=== PATIENT | male | born 1960 | race American Indian/Alaskan Native ===

== ENCOUNTER 2021-08-30 15:39 | Emergency (ER) | payer MEDICAID ==
[2021-08-30] MEDS ORDERED: THIAMINE 100 MG, FOLIC ACID 1 MG, MULTIPLE VITAMIN INJ, ADULT 10 ML in SODIUM CHLORIDE ... IV ONE (16:12)
[2021-08-30] MEDS ORDERED: chlordiazePOXIDE 25 MG CAP PO PRN (16:13)
[2021-08-30] MEDS ORDERED: chlordiazePOXIDE 25 MG CAP PO ONE ×2 (16:18→19:00)
--- NOTE | 2021-08-30 16:18 | Emergency Department Report ---
ED Fall HPI - General Chief Complaint: Fall Stated Complaint: FALL Time Seen by Provider: 08/30/21 16:03 Source: patient, EMS Mode of arrival: Wheelchair Limitations: No Limitations - History of Present Illness Initial Comments: Chief complaint: "I have had multiple falls. I have been drinking excessively." HPI: This is a 61-year-old male with history of bilateral lower extremity amputation as well as left hand amputation of 4 fingers who presents with multiple falls. He is wheelchair-bound with history of right BKA and left AKA. He states that he has been drinking alcohol "excessively". His last drink was yesterday. No history of DTs. He has had multiple falls. His [employer] called EMS for medical evaluation. He has diffuse body pain. He denies head injury or neck pain. He denies discrete pain. He has multiple bruises of the torso. MD Complaint: fall -: days(s) (Several falls over the last week) Fall From: wheelchair When Fall Occurred: unsure Fall Witnessed: no Place Fall Occurred: home Loss of Consciousness: none Prolonged Down Time?: no Symptoms Prior to Fall: none Location: chest, back Severity: moderate Context: tripped/slipped, alcohol use Associated Symptoms: denies - Related Data Allergies Allergy/AdvReac Type Severity Reaction Status Date / Time No Known Allergies Allergy Verified 08/30/21 16:22 ED Review of Systems ROS: Stated complaint: FALL Other details as noted in HPI Comment: All other systems reviewed and negative Constitutional: denies: chills, fever, malaise Respiratory: denies: cough, shortness of breath Cardiovascular: denies: chest pain Gastrointestinal: denies: abdominal pain, nausea, vomiting, diarrhea, constipation Skin: lesions (Multiple bruises) ED Past Medical Hx - Past Medical History Previous Medical History?: Yes Hx Hypertension: Yes Hx COPD: Yes - Surgical History Past Surgical History?: Yes Additional Surgical History: multiple amputations - Family History Family history: hypertension - Social History Smoking Status: Current Every Day Smoker Substance Use Type: Alcohol ED Physical Exam - General Limitations: Physical Limitation General appearance: alert, in no apparent distress, appears intoxicated, other (GCS 15 appears dazed at times slow to respond to questions) - Head Head exam: Present: atraumatic, normocephalic - Eye Eye exam: Present: normal appearance - ENT ENT exam: Present: mucous membranes moist - Neck Neck exam: Present: normal inspection, full ROM. Absent: tenderness, meningismus - Respiratory Respiratory exam: Present: normal lung sounds bilaterally. Absent: respiratory distress, wheezes, rales, rhonchi - Cardiovascular Cardiovascular Exam: Present: normal rhythm, tachycardia, normal heart sounds. Absent: systolic murmur, diastolic murmur, rubs, gallop - GI/Abdominal GI/Abdominal exam: Present: soft, normal bowel sounds. Absent: distended, tenderness, guarding, rebound - Rectal Rectal exam: Present: deferred - Extremities Exam Extremities exam: Present: other (Right BKA, left AKA, 4 digits amputated just distal to the MCP of the left hand) - Back Exam Back exam: Present: other (Multiple bruises). Absent: CVA tenderness (R), CVA tenderness (L), paraspinal tenderness, vertebral tenderness - Neurological Exam Neurological exam: Present: alert, oriented X3 - Psychiatric Psychiatric exam: Present: depressed, flat affect. Absent: suicidal ideation - Skin Skin exam: Present: warm, dry, intact, normal color. Absent: rash ED Course Vital Signs 08/30/21 08/30/21 08/30/21 15:47 16:49 16:51 Temperature 97.9 F 98.2 F Pulse Rate 104 H 99 H 111 H Respiratory 16 18 Rate Blood Pressure Blood Pressure 120/88 103/73 [Left] O2 Sat by Pulse 95 95 Oximetry 08/30/21 08/30/21 08/30/21 17:01 17:04 17:15 Temperature Pulse Rate 114 H 122 H 113 H Respiratory 18 20 Rate Blood Pressure 119/81 123/89 Blood Pressure [Left] O2 Sat by Pulse 94 96 Oximetry 08/30/21 08/30/21 08/30/21 17:31 18:15 18:31 Temperature Pulse Rate 99 H 121 H Respiratory 18 19 Rate Blood Pressure 129/84 126/92 126/92 Blood Pressure [Left] O2 Sat by Pulse 94 97 93 Oximetry 08/30/21 08/30/21 08/30/21 18:45 19:01 19:15 Temperature Pulse Rate 121 H 117 H 115 H Respiratory 38 H 29 H 19 Rate Blood Pressure 119/88 129/84 123/82 Blood Pressure [Left] O2 Sat by Pulse 94 94 97 Oximetry 08/30/21 08/30/2108/30/22 19:28 19:29 19:59 Temperature 97.8 F Pulse Rate 117 H 114 H Respiratory 20 Rate Blood Pressure Blood Pressure 138/70 [Left] O2 Sat by Pulse 99 98 Oximetry ED Medical Decision Making - Lab Data Result diagrams: 08/30/21 16:33 08/30/21 16:33 - EKG Data -: EKG Interpreted by Me EKG shows normal: sinus rhythm Rate: tachycardia - EKG Data Interpretation: nonspecific ST-T wave felipe 08/30/21 17:10 EKG obtained 1657 EKG interpreted by me Sinus tachycardia rate 115 bpm normal axis normal intervals enlarged P waves nonspecific T wave pattern no ST elevation - Radiology Data Radiology results: report reviewed Patient Name: ALDA RICO Gender: Male Date of : 1960 Referring Provider: REN MONTES Organization: [facility] Accession Number: [id number] Requested Date: August 30, 2021 16:28 Report Status: Final Requested Procedure: 1 Procedure Description: CT head/brain wo con Modality: CT Findings Reporting MD: Hasmukh Saunders Dictation Time: August 30, 2021 17:11 Brake Drum Molder: Not available 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 COMPARISON: None available. FINDINGS: BRAIN/INTRACRANIAL STRUCTURES: Unenhanced CT images of the brain demonstrate no evidence of acute abnormality. Ventricles and sulci are prominent in size, consistent with diffuse cerebral atrophy. There is no evidence of acute large vessel territory ischemic injury, hemorrhage, or mass. There are no abnormal extra-axial fluid collections. EXTRACRANIAL STRUCTURES: Unremarkable. IMPRESSION: No acute abnormality. All CT scans at this location are performed using dose reduction to ALARA by means of automated exposure control. Signer Name: Hasmukh Saunders MD Signed: 08/30/2021 5:11 PM Workstation Name: [id number] Patient Name: ALDA RICO Gender: Male Date of : 1960 Referring Provider: REN MONTES Organization: [facility] Accession Number: [id number] Requested Date: August 30, 2021 16:28 Report Status: Final Requested Procedure: 1 Procedure Description: CT cervical spine wo con Modality: CT Findings Reporting MD: Hasmukh Saunders Dictation Time: August 30, 2021 17:13 Brake Drum Molder: Not available Airplane Dispatch Clerk Date: CT CERVICAL SPINE: 08/30/2021 INDICATION / CLINICAL INFORMATION: Trauma. COMPARISON: None available. FINDINGS: CT images of the cervical spine were obtained. Images are evaluated in the axial, coronal, and sagittal planes. There is no evidence of acute traumatic injury. Mild right convex scoliosis centered at the cervicothoracic junction. Reversal of cervical lordosis in the sagittal plane is centered at the C6-7 level. Degenerative disc space narrowing is present at C6-7 and C7-T1. Ventral osteophyte formation is present at all levels, most prominently at C5-6 and C6-7. CRANIOCERVICAL JUNCTION: Unremarkable. PARASPINAL STRUCTURES: Unremarkable IMPRESSION: No acute abnormality. Degenerative changes. All CT scans at this location are performed using dose reduction to ALARA by means of automated exposure control. Signer Name: Hasmukh Saunders MD Signed: 08/30/2021 5:13 PM Workstation Name: [id number] Patient Name: ALDA RICO Gender: Male Date of : 1960 Referring Provider: REN MONTES Organization: [facility] Accession Number: [id number] Requested Date: August 30, 2021 16:29 Report Status: Final Requested Procedure: 1 Procedure Description: CT chest wo con Modality: CT Findings Reporting MD: Loyd Taylor Dictation Time: August 30, 2021 17:19 Brake Drum Molder: Not available Airplane Dispatch Clerk Date: CT chest wo con INDICATION / CLINICAL INFORMATION: Recurrent falls multiple bruises alcohol use. TECHNIQUE: CT chest without contrast All CT scans at this location are performed using CT dose reduction for ALARA by means of automated exposure control. COMPARISON: None available. FINDINGS: Diffuse emphysema. Moderate atherosclerotic calcification of the coronary arteries. No pericardial or pleural effusion. The heart size is normal. Review of bone windows demonstrates mild osteopenia. No discrete fracture identified. IMPRESSION: No acute findings. Severe emphysema. Signer Name: Loyd Taylor MD Signed: 08/30/2021 5:19 PM Workstation Name: [id number] Patient Name: ALDA RICO Gender: Male Date of : 1960 Referring Provider: REN MONTES Organization: [facility] Accession Number: [id number] Requested Date: August 30, 2021 16:29 Report Status: Final Requested Procedure: 1 Procedure Description: CT chest wo con Modality: CT Findings Reporting MD: Loyd Taylor Dictation Time: August 30, 2021 17:19 Brake Drum Molder: Not available Airplane Dispatch Clerk Date: CT chest wo con INDICATION / CLINICAL INFORMATION: Recurrent falls multiple bruises alcohol use. TECHNIQUE: CT chest without contrast All CT scans at this location are performed using CT dose reduction for ALARA by means of automated exposure control. COMPARISON: None available. FINDINGS: Diffuse emphysema. Moderate atherosclerotic calcification of the coronary arteries. No pericardial or pleural effusion. The heart size is normal. Review of bone windows demonstrates mild osteopenia. No discrete fracture identified. IMPRESSION: No acute findings. Severe emphysema. Signer Name: Loyd Taylor MD Signed: 08/30/2021 5:19 PM Workstation Name: [id number] - Medical Decision Making 1. Fall without evidence of neck injury or acute traumatic deformity of the extremities. Patient has multiple bruises of the torso. CT head, CT cervical spine, CT C/A/P obtained due to patient's poor hx. 2. Acute alcohol intoxication. Blood alcohol level 0.34. He appeared intoxicated on exam although he stated that his last drink of alcohol was yesterday. 3. gastritis on ct without acute issues 4. alcoholic liver disease with elevated AST t bili Critical care attestation.: If time is entered above; I have spent that time in minutes in the direct care of this critically ill patient, excluding procedure time. ED Disposition Clinical Impression: Fall, Gastritis, Alcoholic liver disease, Alcohol intoxication Disposition: 01 HOME / SELF CARE / HOMELESS Is pt being admited?: No Does the pt Need Aspirin: No Condition: Stable Instructions: Alcoholic Liver Disease, [id number] Referrals: NELSON RIVERA MD [Primary Care Provider] - 3-5 Days
[2021-08-30 16:52] LABS: Basophils % (Auto) 0.1 % (0.0-1.8); Hematocrit 41.8 % (35.5-45.6); Hemoglobin 13.9 gm/dl (11.8-15.2); Lymphocytes # (Auto) 0.7 K/mm3 (1.2-5.4); Mean Corpuscular HGB Conc 33 % (32-34); Mean Corpuscular Volume 106 fl (84-94); Monocytes # (Auto) 0.5 K/mm3 (0.0-0.8); Monocytes % (Auto) 7.4 % (0.0-7.3); Platelet Count 271 K/mm3 (140-440); Red Blood Count 3.95 M/mm3 (3.65-5.03); Red Cell Distribution Width 16.6 % (13.2-15.2)
[2021-08-30 17:15] LABS: Alanine Aminotransferase 49 units/L (7-56); Albumin 4.9 g/dL (3.9-5); Blood Urea Nitrogen 11 mg/dL (9-20); Calcium 9.6 mg/dL (8.4-10.2); Hemolysis Index 38
[2021-08-30 17:18] LABS: BUN/Creatinine Ratio 22
[2021-08-30] MEDS ORDERED: THIAMINE 100 MG, FOLIC ACID 1 MG in SODIUM CHLORIDE 0.9% 1000 ML 1,000 ML IV ONE (18:00)
--- NOTE | 2021-08-30 18:15 | Cat Scan Report ---
CT BRAIN: 08/30/2021 INDICATION / CLINICAL INFORMATION: Trauma. COMPARISON: None available. FINDINGS: BRAIN/INTRACRANIAL STRUCTURES: Unenhanced CT images of the brain demonstrate no evidence of acute abn ormality. Ventricles and sulci are prominent in size, consistent with diffuse cerebral atrophy. There is no evidence of acute large vessel territory ischemic injury, hemorrhage, or mass. There are no abnormal extra-axial fluid collections. EXTRACRANIAL STRUCTURES: Unremarkable. IMPRESSION: No acute abnormality. All CT scans at this location are performed using dose reduction to ALARA by means of automated expos ure control. Signer Name: Hasmukh Saunders MD Signed: 08/30/2021 6:11 PM Workstation Name: [id number]
--- NOTE | 2021-08-30 18:17 | Cat Scan Report ---
CT CERVICAL SPINE: 08/30/2021 INDICATION / CLINICAL INFORMATION: Trauma. COMPARISON: None available. FINDINGS: CT images of the cervical spine were obtained. Images are evaluated in the axial, coronal, and sagitt al planes. There is no evidence of acute traumatic injury. Mild right convex scoliosis centered at the cervicothoracic junction. Reversal of cervical lordosis i n the sagittal plane is centered at the C6-7 level. Degenerative disc space narrowing is present at C6-7 and C7-T1. Ventral osteophyte formation is prese nt at all levels, most prominently at C5-6 and C6-7. CRANIOCERVICAL JUNCTION: Unremarkable. PARASPINAL STRUCTURES: Unremarkable IMPRESSION: No acute abnormality. Degenerative changes. All CT scans at this location are performed using dose reduction to ALARA by means of automated expos ure control. Signer Name: Hasmukh Saunders MD Signed: 08/30/2021 6:13 PM Workstation Name: [id number]
--- NOTE | 2021-08-30 18:24 | Cat Scan Report ---
CT chest wo con INDICATION / CLINICAL INFORMATION: Recurrent falls multiple bruises alcohol use. TECHNIQUE: CT chest without contrast All CT scans at this location are performed using CT dose reduction for ALA RA by means of automated exposure control. COMPARISON: None available. FINDINGS: Diffuse emphysema. Moderate atherosclerotic calcification of the coronary arteries. No pericardial or pleural effusion. The heart size is normal. Review of bone windows demonstrates mild osteopenia. No discrete fracture identified. IMPRESSION: No acute findings. Severe emphysema. Signer Name: Loyd Taylor MD Signed: 08/30/2021 6:19 PM Workstation Name: [id number]
--- NOTE | 2021-08-30 18:55 | Cat Scan Report ---
CT abdomen pelvis w con INDICATION / CLINICAL INFORMATION: Multiple falls bruising alcohol use. TECHNIQUE: CT abdomen performed following 100 mL Omnip[address] scans at this location are performed using CT dose reduction for ALARA by means of automated exposure control. COMPARISON: None available. FINDINGS: Abdomen and pelvis: The liver is enlarged and mildly fatty. A small cystlike lesion is located within the right hepatic lobe. The spleen appears small only measuring about 4 cm craniocaudal. Both kidney s contain several cysts. No hydronephrosis. The stomach is mostly collapsed. The gallbladder is fluid distended. The stomach mucosa appears enhancing and slightly thickened. There is moderate atheroscle rotic calcification throughout the abdominal aorta. No free air or free fluid. Partial large bowel re section noted. Urinary bladder is fluid distended. Several prostate calcifications are noted. No free pelvic fluid is identified. Review of bone windows demonstrates slight osteopenia. No fracture or subluxation is identified. IMPRESSION: Enlarged, fatty liver. Moderate to severe atherosclerotic calcification of the abdominal aorta. Suspect mild gastritis of the body of the stomach. Signer Name: Loyd Taylor MD Signed: 08/30/2021 6:51 PM Workstation Name: [id number]
[2021-08-30 22:57] VITALS: BP 138/74
--- NOTE | 2021-09-02 08:33 | Electrocardiograph Report ---
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
== END 2021-08-30 22:53 | disposition home or self-care (01) ==
LOC: ED 15:39
DX: K29.70 Gastritis, unspecified, without bleeding (principal); K70.9 Alcoholic liver disease, unspecified; F10.129 Alcohol abuse with intoxication, unspecified; I10 Essential (primary) hypertension; W19.XXXA Unspecified fall, initial encounter; Y93.89 Activity, other specified; Y92.89 Other specified places as the place of occurrence of the external cause; Y99.8 Other external cause status
CPT/HCPCS: 36415; 70450; 71250; 72125; 74177; 80053; 82962; 85025; 93005; 96365; 96366; 99285; J3411; J3490; J7030; Q9967; 80320; Q0162; G0480